=== PATIENT | female | born 1995 ===

== ENCOUNTER 2025-04-22 05:55 | Day surgery (SDC) | payer OTHER ==
[2025-04-22] MEDS ORDERED: CEFAZOLIN SODIUM 1,000 MG VIAL ONE (07:45)
[2025-04-22] MEDS ORDERED: BUPIVACAINE HCL/MPF 0.5% 30ML VIAL ONE (07:56)
[2025-04-22] MEDS ORDERED: SUGAMMADEX SODIUM 200 MG/2 ML VIAL IV ONE (08:58)
== END 2025-04-22 11:45 | disposition home or self-care (01) ==
LOC: CIR.AMB 05:55
PROVIDERS: ATTEND Surgery
DX: K81.1 Chronic cholecystitis (principal)